=== PATIENT | male | born 1990 | race Caucasian/White ===

== ENCOUNTER 2025-05-24 22:17 | Emergency (ER) | payer BC, SELFPAY ==
[2025-05-24 22:25] VITALS: BP 148/90; PULSE 73; RESP 18; TEMP 36.7; O2SAT 98; BMI 28.0
--- OUTSIDE RECORDS SUMMARY | 2025-05-25 00:51 | XMS_ITS | Clinical Summary ---
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 I am able to palpate a bump just above the right testicle-I suspect that this is an epididymitis which is resolving versus spermatocele versus cyst. I ordered an ultrasound for further investigation. I gave him guidance to take some ibuprofen as needed with food for today and tomorrow and to call if this gets worse or if he develops a fever or if there are any other issues or concerns with this. He understands and agrees. Acute pain of left shoulder 07/28/2022 Assessment & Plan (07/28/2022 4:39 PM EST): Samy was diagnosed with left shoulder pain status post an injury-fall last night while playing soccer. I ordered an x-ray to rule out any bony abnormalities. I also put an order in for physical therapy to start as I believe at best case scenario there is a strain. Worse case scenario might be rotator cuff tear thus I put an order for orthopedic referral-evaluation. He would like this done in [place] as [facility] I put a referral in today. I gave guidance regarding symptomatic management-heat/ice, ibuprofen with food and Tylenol as needed. He will call if there are any other issues or concerns. He understands and agrees with this plan. Immunizations Immunization Administration Dates Next Due COVID-19 (Pre-05/03) Moderna Vaccine, mRNA, PF 0 08/10/2020,07/13/2020 Td (adult),2 Lf Tetanus Toxoid, PF, Adsorbed 02/2017 Family History Medical History Relation Comments CABG Maternal Grandfather CV disease Maternal Grandfather Relation Status Comments Maternal Grandfather Social History Tobacco Use Types Packs/Day Years Used Date Smoking Tobacco: Never Smokeless Tobacco: Never Tobacco Cessation:Counseling Given: Not Answered Child or Family Care Answer Date Record ed Do you have problems with on e of the following making it difficult for you to work, study, or receive health care? No 10/06/2021 Education Answer Date Recorded Are you interested in more education? Not on miles e 10/26/2023 Are you concerned about learning? Not on file 10/26/2023 No 10/26/2023 No 10/26/2023 Food Answer Date Recorded Within the past 6 months we worried whether our food would run out before we got money to buy more. Never True 10/06/2021 Within the past 6 months the food we bought just didn't last and we didn't have enough money to get more. Never True Residential Stability Answer Date Recor ded What is your housing situation today? I have dorinda espinoza 10/06/2021 How many times have you moved in the past 12 wed th? One time 10/06/2021 Paying for Meds Answer Date Recorded Do you have trouble paying for medicines? No 10/06/2021 Paying Utility Bills Answer Date Record ed Do you have trouble paying your heating or elect ricity bill? No 10/06/2021 Transportation Answer Date Recorded Has the lack of transportati on kept you from medical appointments or from getting medications? No 10/06/2021 Unemployment Answer Date Recorded Are you currently unemployed or working on a part-time or temporary basis, and looking for work? No 10/06/2021 Digital Access Answer Date Recorded No 12/05/2022 No 12/05/2022 Reliable internet access at home? Not on file 12/05/2022 Device with a working camera? Not on file Sex and Gender Information Value Date Recorded Sex Assigned at Not on file Legal Sex Male 10:26 PM EDT Gender Identity Not on file Sexual Orientation Not on file Last Filed Vital Signs Vital Sign Reading Time Taken Comments Blood Pressure 128/78 12/13/2023 9:48 AM EDT Pulse 60 12/13/2023 9:48 AM EDT Temperature 36.9 C (98.5 F) 12/13/2023 9:48 AM EDT Respiratory Rate - - Oxygen Saturation 98% 12/13/2023 9:48 AM EDT Inhaled Oxygen Concentration - - Weight 87.5 kg (193 lb) 12/13/2023 9:48 AM EDT Height 177.8 cm (5' 10 ) 12/13/2023 9:48 AM EDT Body Mass Index 27.69 12/13/2023 9:48 AM EDT Plan of Treatment Health Maintenance Due Date Last Done Comments LIPID PANEL 1988 HEPATITIS C SCREENING 2006 HIV ONE-TIME SCREENING (18-6 5 YEARS) 2006 DEPRESSION SCREENING 10/06/2022 10/06/2021 SCREENING FOR DIABETES 2023 INFLUENZA VACCINE (#1) 2025 COVID-19 VACCINE (3 - 2024-2 6 season) 2025 08/10/2020, 07/13/2020 Adult Td,Tdap Booster 08/19/2026 08/19/2016 SMOKING STATUS SCREENING (On ce After 26 Yrs) Completed 07/28/2022 HEPATITIS A VACCINES Aged Out No long er eligible based on patient's age to complete this topic HIB VACCINES Aged Out No longer eligi ble based on patient's age to complete this topic IPV VACCINES Aged Out No longer eligi ble based on patient's age to complete this topic MENINGOCOCCAL VACCINES (ACWY) Aged Out No longer eligible based on patient's age to complete this topic MENINGOCOCCAL VACCINES (B) Aged Out N o longer eligible based on patient's age to complete this topic PNEUMOCOCCAL VACCINES (0-49 years) Aged Out No longer eligible b ased on patient's age to complete this topic Medical Devices Not on file Insurance [facility] [address] [place] [address] [place], [place] [address] [place], [place] [address] [facility] Member Subscriber Plan / Payer (Ef fective 2023-Present) Name:Samy Ingram Relation to Subscriber:Self Name:NatalySamy Payer ID:Not on file Type:PPO Address: [place] [id number] Care Teams Dyeing Machine Tender Relationship Specialty Start Date End Date Laure Samuels MD [address] [place] [address] [address] [place] [address] [email or web address] PCP - General Family Medicine 06/24/21 Laure Samuels MD [address] [place] [address] [address] [place] [address] [email or web address] Insurance Assigned Provider 07/17/24 Additional Source Comments The information contained in this document represents components of the legal health record. It is not the complete legal health record.[facility]
--- NOTE | 2025-05-25 01:04 | ED_ITS ---
HPI - Eye Problem General Chief complaint: Eye Problems Stated complaint: Eye Issues Irritation Time Seen by Provider: 05/25/25 00:57 Source: patient Mode of arrival: ambulatory Limitations: no limitations History of Present Illness ED Provider: Dr. Floresita Brizuela HPI Narrative: Patient comes to the emergency room complaining of blurred vision in the lower feels of his right eye which started a few hours after he got hit in the eye by a soccer ball. Patient denies any other injuries. Patient states that he can see well enough, but there is a little bit of blurred vision as mentioned above. Left eye is normal Related Data Allergies Allergy/AdvReac Type Severity Reaction Status Date / Time No Known Allergies Allergy Verified 05/24/25 22:30 Review of Systems Review of Systems: Constitutional : No Weight loss, No Fever, No Chills, No Night Sweats, No Fatigue, No Malaise ENT/Mouth : No Hearing loss, No Ear Pain, No Nasal Congestion, No Sinus Pain, No Hoarseness, No sore throat, No Rhinorrhea, No Swallowing Difficulty Eyes: No Eye Pain, No Swelling, No Redness, No Foreign Body, No Discharge, No Vision Changes, complaining of mild blurred vision of the right eye lower amador bilaterally due to blunt trauma from a soccer ball Cardiovascular : No Chest Pain, No SOB, No Dyspnea on Exertion, No Orthopnea, No Edema, No Palpitations Respiratory : No Cough, No Sputum, No Wheezing, No Smoke Exposure, No Dyspnea Gastrointestinal : No Nausea, No Vomiting, No Diarrhea, No Constipation, No abdominal Pain, No Hematochezia, No Melena Genitourinary : no irregular bleeding, No Dysuria, No Urinary Frequency, No Hematuria, No Urinary Incontinence, No Urgency, No Flank Pain, No Urinary Flow Changes, No Hesitancy Musculoskeletal : No joint pain, No Myalgias, No Joint Swelling Skin : No Skin Lesions, No rash Neuro : No Weakness, No Numbness, No Paresthesias, No Loss of Consciousness, No Dizziness, No Headache Psych : No Anxiety/Panic, No Depression, No SI/HI/AH/VH, No Social Issues, Heme/Lymph: No Bruising, No Bleeding,No Lymphadenopathy Endocrine : No Polyuria, No Polydipsia, No Temperature Intolerance PMFSH Social History Social History Advance Directives: No Physical Exam Exam: Exam: Appearance: Alert. Oriented X3. No acute distress. Eyes: Pupils equal, round and reactive to light. noted that the patient's right upper eyelid is slightly swollen and has mild ecchymosis. Ocular movements bilaterally are intact and painless - right eye: Patient will acuity 20/25, pressure 23.9 mmHg, negative Gonzalez sign, no corneal abrasion. Ultrasound: No evidence of retinal deta chment or vitreous hemorrhage, optic nerve sheath diameter 0.49 cm - left eye: Visual acuity 20/50, pressure 21.9 mm Hg, negative Gonzalez sign, no corneal abrasion. Ultrasound: normal ultrasound without any acute abnormalities. Optic nerve sheath diameter: 0.49 cm ENT: Pharynx normal. Neck: Normal inspection. Neck supple. No lymph nodes noted. No crepitus CVS: Normal heart rate and rhythm. Pulses normal. Normal S1 and S2 Respiratory: No respiratory distress. Breath sounds normal. No Wheezing. No rales Abdomen: Soft and nontender. No rigidity. No distention. Skin: Skin warm and dry. Normal skin color. Normal skin turgor. Extremities: No lower extremity edema. No Lacerations. No Rash Neuro: Oriented X 3. No motor deficit. No sensory deficit. Moving all extremities. No slurred speech. CN 2 through 12 grossly intact Psych: calm, cooperative, normal affect Vital Signs: Vital Signs: Last Vital Signs Temp 98.0 F 05/24/25 22:25 Pulse 73 05/24/25 22:25 Resp 18 05/24/25 22:25 BP 148/90 H 05/24/25 22:25 Pulse Ox 98 05/24/25 22:25 O2 Del Method Room Air 05/24/25 22:25 BMI result Body Mass Index 28.0 Medical Decision Making Differential Diagnosis Differential Diagnoses: The differential diagnosis associated with the presentation includes ( commotio retina, hyphema, vitreous hemorrhage, retinal tear, retinal detachment) Discharge Plan Discharge Clinical Impression: Commotio retinae Patient Disposition: Home, Self-Care Instructions: Blurred Vision (ED) Additional Instructions: Please follow-up with your primary care physician tomorrow. If you have any worsening or new symptoms, please return to the emergency room or call 911 Referrals: Holden Napier [Physician, Ophthalmology] Print Language: Eritrean
[2025-05-25 01:42] VITALS: BP 148/90; PULSE 73; RESP 18; TEMP 36.7; O2SAT 98
== END 2025-05-25 01:42 | disposition home or self-care (01) ==
PROVIDERS: Emergency Provider Emergency Medicine; PCP Student in an Organized Health Care Education/Training Program
DX: S05.8X1A Other injuries of right eye and orbit, initial encounter (principal); W21.02XA Struck by soccer ball, initial encounter; Y93.89 Activity, other specified; Y92.9 Unspecified place or not applicable; Y99.9 Unspecified external cause status; H53.8 Other visual disturbances
CPT/HCPCS: 99282; 99284